=== PATIENT | male | born 1995 ===

== ENCOUNTER 2017-03-09 14:55 | Emergency (ER) | payer MEDICAID ==
[2017-03-09 15:24] VITALS: TEMP 98.3
--- NOTE | 2017-03-09 17:22 | C.PDOC ---
History Of Present Illness Pt c/o rash on his face. Time Seen by Provider: 03/09/17 16:42 Chief Complaint (Nursing): Abnormal Skin Integrity History Per: Patient, Family Onset/Duration Of Symptoms: Days (3) Current Symptoms Are (Timing): Still Present Location Of Injury: Left: Face Severity: Moderate Additional History Per: Prior Records Past Medical History Reviewed: Historical Data, Nursing Documentation, Vital Signs Vital Signs: Last Vital Signs Temp 98.3 F 03/09/17 15:22 Pulse 75 03/09/17 15:22 Resp 18 03/09/17 15:22 BP 112/73 03/09/17 15:22 Pulse Ox 96 03/09/17 15:22 - Medical History PMH: No Chronic Diseases Family History: States: Unknown Family Hx - Social History Hx Alcohol Use: No Hx Substance Use: No - Immunization History Hx Tetanus Toxoid Vaccination: Yes Hx Influenza Vaccination: No Hx Pneumococcal Vaccination: No Review Of Systems Except As Marked, All Systems Reviewed And Found Negative. Constitutional: Negative for: Fever, Weakness Eyes: Negative for: Pain, Vision Change, Conjunctivae Inflammation ENT: Negative for: Ear Pain, Ear Discharge, Mouth Pain, Mouth Swelling, Throat Pain Cardiovascular: Negative for: Chest Pain Respiratory: Negative for: Cough, Shortness of Breath Gastrointestinal: Negative for: Nausea, Vomiting, Abdominal Pain Musculoskeletal: Negative for: Neck Pain Skin: Positive for: Rash Neurological: Negative for: Weakness, Numbness, Seizures, Altered Mental Status , Headache Physical Exam - Physical Exam Appears: Non-toxic, No Acute Distress Skin: Normal Color, Warm, Dry, Rash (herpes zoster on left side for forehead and nose. ) Head: Atraumatic, Normacephalic Eye(s): bilateral: Normal Inspection, PERRL, EOMI Ear(s): Bilateral: Normal Oral Mucosa: Moist, No Drooling, No Trismus Throat: Normal Neck: Normal ROM, Supple Lymphatic: No Adenopathy Cardiovascular: Rhythm Regular Respiratory: Normal Breath Sounds, No Accessory Muscle Use Gastrointestinal/Abdominal: Soft, No Tenderness Extremity: Normal ROM Neurological/Psych: Oriented x3, Normal Speech, Normal Cognition, Normal Cranial Nerves, Normal Motor, Normal Sensation ED Course And Treatment O2 Sat by Pulse Oximetry: 96 Pulse Ox Interpretation: Normal Disposition Counseled Patient/Family Regarding: Diagnosis, Need For Followup, Rx Given - Disposition Referrals: Frederic Blair MD [Staff Provider] - Disposition: HOME/ ROUTINE Disposition Time: 17:24 Condition: STABLE Additional Instructions: Follow up with an Debt Management Counselor (eye doctor) within 1-2 days. Follow up with your primary doctor. Return to the ER if you develop fever, change in vision, involvement of the inside of your eye, worsening of symptoms or if you have any other concerns. Prescriptions: Acyclovir [Zovirax] 800 mg PO 5XD #50 tab Instructions: Shingles (ED) Forms: [employer] (Tristanian) - Clinical Impression Clinical Impression: Herpes zoster ophthalmicus of left eye
[2017-03-09 17:38] VITALS: BP 110/72; PULSE 80; RESP 20; O2SAT 97
== END 2017-03-09 17:38 | disposition home or self-care (01) ==
LOC: C.ER 14:55
DX: B02.30 Zoster ocular disease, unspecified (principal)